=== PATIENT | male | born 1990 | race African-American/Black ===

== ENCOUNTER 2018-06-05 21:49 | Emergency (ER) | payer OTHER ==
[~2018-06-05] VITALS: Ht 195.6 cm; Wt 99.8 kg
[2018-06-05 21:55] VITALS: BP 142/80
[2018-06-06] MEDS ORDERED: KETOROLAC TROMETH 60MG/2ML VIAL IM ONE (00:45)
[2018-06-06] MEDS ORDERED: cefTRIAXone SOD 1,000 MG VL IM ONE (00:45)
== END 2018-06-06 01:29 | disposition home or self-care (01) ==
LOC: ER 21:49
DX: L02.31 Cutaneous abscess of buttock (principal)
CPT/HCPCS: 96372; 99283; J0696; J1885